=== PATIENT | female | born 1975 | race Two or more races ===

== ENCOUNTER 2017-10-19 19:29 | Emergency (ER) | payer OTHER ==
[~2017-10-19] VITALS: Ht 170.2 cm; Wt 83.0 kg
[2017-10-19 20:40] LABS: *BILIRUBIN,URIN NEGATIVE (NEGATIVE); *BLOOD, URINE 1+ (NEGATIVE); *CLARITY,URINE CLEAR (CLEAR); *COLOR,URINE YELLOW (YELLOW); *KETONES,URINE NEGATIVE (NEGATIVE); *PROTEIN,URINE NEGATIVE (NEGATIVE); *UROBILINOGEN,URINE 0.2 E.U./dl (NORMAL); LEUKOCYTE ESTERASE ,URINE NEGATIVE (NEGATIVE); NITRITE, URINE NEGATIVE (NEGATIVE); PH,URINE 5.5 (5.0-8.0); UGLUCOSE NEGATIVE (NEGATIVE)
[2017-10-19 20:43] LABS: BACTERIA,URINE NONE SEEN /HPF (NONE SEEN); RBC,URINE 0-3 /HPF (0-3); SQUAMOUS EPITHELIAL CELL,UR FEW /HPF (NONE SEEN); WBC,URINE 0-3 /HPF (0-3)
[2017-10-19 20:45] LABS: *URINE HCG, QUAL NEGATIVE (NEGATIVE)
--- NOTE | 2017-10-19 21:11 | NUR ---
Patient discharged to home in stable conditon. Written and verbal after care instructions given. Patient verbalizes understanding of instructions. Ambulated from ER with stable gait. All belongings with patient.
[2017-10-19 21:12] VITALS: BP 125/80
== END 2017-10-19 21:12 | disposition home or self-care (01) ==
LOC: ER 19:30
DX: H81.01 Meniere's disease, right ear (principal); N76.0 Acute vaginitis; H92.01 Otalgia, right ear; Z88.1 Allergy status to other antibiotic agents
CPT/HCPCS: 84703; A4663

== ENCOUNTER 2018-09-17 15:27 | Emergency (ER) | payer MEDICAID, OTHER ==
[~2018-09-17] VITALS: Ht 170.2 cm; Wt 83.0 kg
[2018-09-17 16:09] VITALS: BP 134/76
--- NOTE | 2018-09-17 16:09 | NUR ---
Patient discharged to home in stable conditon. Written and verbal after care instructions given. Patient verbalizes understanding of instructions.
== END 2018-09-17 16:10 | disposition home or self-care (01) ==
LOC: ER 15:29
DX: N89.8 Other specified noninflammatory disorders of vagina (principal); Z88.1 Allergy status to other antibiotic agents
CPT/HCPCS: A4663

== ENCOUNTER 2024-06-07 11:58 | Emergency (ER) | payer MEDICAID, OTHER ==
[~2024-06-07] VITALS: Ht 170.2 cm; Wt 85.3 kg
[2024-06-07] MEDS ORDERED: ERYT3.5O24 LEFTEYE (13:12)
[2024-06-07 13:18] VITALS: BP 110/78; O2SAT 98
== END 2024-06-07 13:18 | disposition home or self-care (01) ==
LOC: ER 11:58
DX: H01.004 Unspecified blepharitis left upper eyelid (principal); Z79.899 Other long term (current) drug therapy; Z88.7 Allergy status to serum and vaccine
CPT/HCPCS: A4606; A4663